=== PATIENT | male | born 1975 | race Hispanic/Latino ===

== ENCOUNTER 2019-03-25 16:43 | Emergency (ER) | payer BC ==
--- OUTSIDE RECORDS SUMMARY | 2019-03-25 16:44 | XMS REPORT | Summary of Care ---
:1975 Author Organization [facility] - [facility] Address [address] [place] [address] Care Team Providers Name Role Phone Edmundo Ballesterosa Palmira Primary Care Provider Reason for Visit Reason Comments Follow-up Hearing Problem Encounter Details Date Type Department Care Team Description 12/29/2018 Office Visit [facility] Ear, Nose Makishima, Otalgia of left ear (Primary Dx); and Throat-Lamar Lidia Otitis externa of left ear, unspecified chronicity, unspecified type [address] [facility] [id number] [place] [address] [phone] Allergies No Known Allergiesdocumented as of this encounter (statuses as of 12/29/2018) Medications Medication Sig Dispensed Refills Start Date End Date Status clotrimazole 1 % Instill 4 drops 15 mL 1 11/25/2018 Active solutionIndications: to both ear(s) Otitis externa, fungal, BID x 10 days. both ears, Perforation of left tympanic membrane documented as of this encounter (statuses as of 12/29/2018) Active Problems No known active problemsdocumented as of this encounter (statuses as of 2018) Social History Tobacco Use Types Packs/Day Years Used Date Never Smoker Smokeless Tobacco: Never Used Sex Assigned at Date Recorded Not on file Job Start Date Occupation Industry Not on file Not on file Not on file Travel History Travel Start Travel End No recent travel history available. documented as of this encounter Last Filed Vital Signs Vital Sign Reading Time Taken Comments Blood Pressure - - Pulse - - Temperature 36.7 C (98.1 F) 12/29/2018 4:01 PM CDT Respiratory Rate - - Oxygen Saturation - - Inhaled Oxygen Concentration - - Weight 135.2 kg (298 lb) 12/29/2018 4:01 PM CDT Height 175.3 cm (5' 9") 12/29/2018 4:01 PM CDT Body Mass Index 44.01 12/29/2018 4:01 PM CDT documented in this encounter Progress Notes Rafy Schmidt MD - 12/29/2018 4:00 PM CDT OTOLARYNGOLOGY CLINIC NOTE NAME: Jayjay Haywood DATE: 12/29/2018 CC: Bilateral otitis externa HISTORY OF PRESENT ILLNESS: Jayjay Haywood is a 43 year old male here for follow up of above complaint. Today patient reports hishearing is a lot better. He reports that he was told that right ear had the infection and his left ear had 'stuff' in it. He reports that [facility] they put gentian lloyd in his left ear. He is still following dry ear precautions and has stopped using q-tips to clean his ear. He reports that he believes that using the q-tips is what started his ear problems. Denies otorrhea, dizziness, fevers, chills PMH History reviewed. No pertinent past medical history. PSH History reviewed. No pertinent surgical history. Meds Current Outpatient Medications Medication Sig Dispense Refill clotrimazole 1 % solution Instill 4 drops to both ear(s) BID x 10 days. 15 mL 1 No current facility-administered medications for this visit. Social History Social History Socioeconomic History Marital status: Spouse name: Not on file Number of children: Not on file Years of education: Not on file Highest education level: Not on file Occupational History Not on file Social Needs Financial resource strain: Not on file Food insecurity: Worry: Not on file Inability: Not on file Transportation needs: Medical: Not on file Non-medical: Not on file Tobacco Use Smoking status: Never Smoker Smokeless tobacco: Never Used Substance and Sexual Activity Alcohol use: Not on file Drug use: Not on file Sexual activity: Not on file Lifestyle Physical activity: Days per week: Not on file Minutes per session: Not on file Stress: Not on file Relationships Social connections: Talks on phone: Not on file Gets together: Not on file Attends tenriism service: Not on file Active member of club or organization: Not on file Attends meetings of clubs or organizations: Not on file Relationship status: Not on file Intimate partner violence: Fear of current or ex partner: Not on file Emotionally abused: Not on file Physically abused: Not on file Forced sexual activity: Not on file Other Topics Concern Not on file Social History Narrative Not on file Allergies: No Known Allergies Review of systems: CONSTITUTIONAL: Negative EYES: Negative ENT: Negative CARDIOVASCULAR: Negative RESPIRATORY: Negative GASTROINTESTINAL: Negative GENITOURINARY: Negative MUSCULOSKELETAL: Negative SKIN: Negative NEUROLOGICAL: Negative PSYCHIATRIC: Negative ENDOCRINE: Negative HEMATOLOGIC/ LYMPHATIC: Negative ALLERGIC/ IMMUNOLOGIC: negative Physical Exam Vitals: Temp 36.7 C (98.1 F) (Tympanic) | Ht 5' 9" (1.753 m) | Wt 298 lb ( 135.2 kg) | BMI 44.01 kg/m Gen: patient appears stated age, awake, alert, oriented & in no apparent distress Eyes: EOMI Ears: External ears normal bilaterally Right ear canal is normal with no wax impaction or swelling Right tympanic membrane normal, intact TM, no fluid or perforation Left ear canal is normal with no wax impaction or swelling; gentian lloyd residue noted Left tympanic membrane normal, intact TM; no fluid/peforation Nose: No septal deviation, no polyps or pus; inferior turbinates not enlarged Oral cavity: No trismus, good dentition, no lesions Oropharynx: Tonsils 1+, no bleeding noted, mucosa regular Face/Neck: No facial lesions, no neck masses, trachea in midline with no deviation, no palpable thyroid nodules; salivary glands symmetrical without masses/tenderness Lymph: no palpable cervical adenopathy Pulmonary: No respiratory distress, breathing unlabored Imaging: None Labs: None new Studies: None new Procedure: None ASSESSMENT: Jayjay Haywood is a 43 year old male with a past medical history as detailed above, presenting for a f/u of the ear infection. His ear infection has resolved and he can RTC if the infection returns: ICD-10-CM ICD-9-CM 1. Otalgia of left ear H92.02 388.70 2. Otitis externa of left ear, unspecified chronicity, unspecified type H60.92 380.10 Plan: - Following dry ear precautions -Discusses harmful effects of using q-tips to clean the ears -Use diluted peroxide to clean the ears, if patient wishes to Attestation IEri , am scribing for, and in the presence of, Lidia Caban MD who performed and or ordered the services described here-in. Eri Dickens Scribe Lisa: [facility] Otolaryngology Clinics December 29, 2018, 4:08 PM IRafy MD, personally performed the services described in this documentation , as scribed by, Eri Dickens in my presence and it is both accurate and complete. Rafy Schmidt MD December 29, 2018, 9:28 PM documented in this encounter Plan of Treatment Health Maintenance Due Date Last Done Comments DTaP,Tdap,and Td Vaccines (1 - 12/13/1994 Tdap) INFLUENZA VACCINE (#1) 2019 PNEUMOCOCCAL 0-64 YEARS COMBINED Aged Out No longer eligible based on SERIES patient's age to complete this topic documented as of this encounter Results Not on filedocumented in this encounter Visit Diagnoses Diagnosis Otalgia of left ear - Primary Otalgia, unspecified Otitis externa of left ear, unspecified chronicity, unspecified type documented in this encounter Insurance Payer Benefit Plan Subscriber ID Effective Dates Phone Address Type / Group [facility] [id number] 2009-Prese [phone] [address] PPO/POS [place] - OUT OF 7 [id number] [place] [address] (Home) [place] [address] documented as of this encounter
--- OUTSIDE RECORDS SUMMARY | 2019-03-25 16:44 | XMS REPORT | Summary of Care ---
:1975 Author Organization [facility] - [facility] Address [address] [place] [address] Care Team Providers Name Role Phone Linette Ballesteros Palmira Primary Care Provider Reason for Visit Reason Comments Follow-up Right ear infection and left ear perforation Ear Problem Encounter Details Date Type Department Care Team Description 12/15/2018 Office Visit [facility] Ear, Nose Makishima, Conductive hearing loss of left ear with unrestricted hearing of right ear (Primary Dx); and Throat-[place]ri[place] Lidia Otitis externa, fungal, both ears; [address] [facility] Otorrhea, left [place] [address] [place] [phone] Allergies No Known Allergiesdocumented as of this encounter (statuses as of 12/19/2018) Medications Medication Sig Dispensed Refills Start Date End Date Status clotrimazole 1 % Instill 4 drops 15 mL 1 11/25/2018 Active solutionIndications: to both ear(s) Otitis externa, fungal, BID x 10 days. both ears, Perforation of left tympanic membrane documented as of this encounter (statuses as of 12/19/2018) Active Problems Not on filedocumented as of this encounter (statuses as of 12/19/2018) Social History Tobacco Use Types Packs/Day Years [...] - - Temperature 36.7 C (98.1 F) 12/15/2018 9:40 AM CDT Respiratory Rate - - Oxygen Saturation - - Inhaled Oxygen Concentration - - Weight 135.2 kg (298 lb) 12/15/2018 9:40 AM CDT Height 175.3 cm (5' 9") 12/15/2018 9:40 AM CDT Body Mass Index 44.01 12/15/2018 9:40 AM CDT documented in this encounter Progress Notes Lidia Caban - 12/15/2018 9:00 AM CDT Name: Jayjay Haywood MR No: [id number] Provider: Lidia Caban MD Date: 12/15/2018 Chief Complaint: fungal ear infections History of Present Illness: Jayjay Haywood is a 43 year old male seen today at the request of Reji Preston PA-C for evaluationof fungal ear infections. Reports h/o recurrent ear infections since April 2018 that were treatedwith 2-3 different antibiotics. He states he was prescribed an antifungal last visit and Pt reports hearing improved since finishing the 10 day antifungal course. Current medications reported: none Denies fever, or recent infections. Past Medical Hx: No past medical history on file. Past Surgical Hx: No past surgical history on file. Family History: No family history on file. Social History: Social History Occupational History Not on file Tobacco Use Smoking status: Never Smoker Smokeless tobacco: Never Used Substance and Sexual Activity Alcohol use: Not on file Drug use: Not on file Sexual activity: Not on file Medications: Current Outpatient Medications Medication Sig clotrimazole 1 % solution Instill 4 drops to both ear(s) BID x 10 days. Allergies to Meds: Patient has no known allergies. Review of systems: CONSTITUTIONAL: Negative EYES: Negative ENT: See HPI CARDIOVASCULAR: Negative RESPIRATORY: Negative GASTROINTESTINAL: Negative GENITOURINARY: Negative MUSCULOSKELETAL: Negative SKIN: Negative NEUROLOGICAL: Negative PSYCHIATRIC: Negative ENDOCRINE: Negative HEMATOLOGIC/ LYMPHATIC: Negative ALLERGIC/ IMMUNOLOGIC: negative Physical Exam: Temp 36.7 C (98.1 F) (Tympanic) | Ht 5' 9" (1.753 m) | Wt 298 lb (135.2 kg ) | BMI 44.01 kg/m CONSTITUTIONAL:No acute distress EYES:Extraocular movements intacts, no irritation EARS, NOSE, MOUTH, AND THROAT: Otoscopic Examination: RIGHT: Ear canal: Normal; Tympanic Membrane: Normal; Mobility: Normal Mobility. LEFT: Ear canal: Fungal and purulent debris noted; Tympanic Membrane: purulent ottorhea, fungal debris,; Mobility: Normal Mobility . External Ears: Normal pinna bilaterally External Nose: No deformity Nasal Exam: Normal septum and turbinates Oral Exam: No lesions Lips, Teeth, and Gums: Unremarkable, no lesions Larynx: Voice normal. No direct visualization, Tonsils Face: No lesions. TMJ joints not examinedCARDIOVASCULAR:Extremities were warm. RESPIRATORY:There was normal chest expansion SKIN:No lesions of the head and neck NEUROLOGICAL:Grossly intact PSYCHIATRIC: Normal Affect HEMATOLOGICAL/ LYMPHATIC:No lymphadenopathy or masses of the neck Data Reviewed: Medical: None Radiology: None Laboratory: None Audiology: None Procedure: Binocular Microscopy, left ear: Binocular microscopy was performed of the left ear for better visualization of the tympanic membranes. Debris was removed with a combination of Yamileth suctions , ring curette and alligator instruments as needed. After removal of the cerumen: Left: TM intact, Ciprodex drops and Gentian Kandace applied after removal Jayjay Haywood tolerated the procedure well without any complications. Assessment and Plan: Jayjay Haywood is a 43 year old male present as a new patient after seeing a PA- C for recurrent ear infections. Pt reports improvement today with Lotrimin drops. Pt is here for 2 week follow-up. ICD-10-CM ICD-9-CM 1. Conductive hearing loss of left ear with unrestricted hearing of right ear H90.12 389.05 2. Otitis externa, fungal, both ears B36.9 117.9 H62.43 380.15 3. Otorrhea, left H92.12 388.60 - Recommend using Lotrimin drops if symptoms return - Recommend using headphones rather than ear plugs for work Medications Given: (Patients allergies include: Patient has no known allergies.) None Follow Up: 2-3 weeks Scribe's Attestation I, Yaneli Mckeon , am scribing for, and in the presence of, Lidia Caban MD who performed the services described here-in. Yaneli Mckeon, December 15, 2018, 9:54 AM Physician's Attestation I, Dr. Lidia Caban MD, personally performed and ordered the services described in this documentation, as scribed by Yaneli Mckeon, in my presence , and it is both accurate and complete. documented in this encounter Plan of Treatment Date Type Specialty Care Team Description 12/29/2018 Office Visit Otolaryngology Lidia Caban [id number] [place] [address] [phone] Health Maintenance Due Date Last Done Comments DTaP,Tdap,and Td Vaccines (1 - 12/13/1994 Tdap) INFLUENZA VACCINE (#1) 2019 PNEUMOCOCCAL 0-64 YEARS COMBINED Aged Out No longer eligible based on SERIES patient's age to complete this topic documented as of this encounter Results Not on filedocumented in this encounter Visit Diagnoses Diagnosis Conductive hearing loss of left ear with unrestricted hearing of right ear - Primary Otitis externa, fungal, both ears Otorrhea, left documented in this encounter Insurance Payer Benefit Plan Subscriber ID Effective Dates Phone Address Type / Group [facility] [id number] 2009-Prese [phone] [address] PPO/POS [place] - OUT OF nt 7 [id number] [place] [address] (Home) [place] [address] documented as of this encounter
--- OUTSIDE RECORDS SUMMARY | 2019-03-25 16:44 | XMS REPORT | Summary of Care ---
:1975 Author Organization [facility] - [facility] Address [address] [place] [address] Care Team Providers Name Role Phone Edmundo Ballesterosa Palmira Primary Care Provider Encounter Details Date Type Department Care Team Description 12/29/2018 Letter (Out) [facility] Ear, Nose and MakLidia odonnell Throat-[address] [address] [place] [address] [place] [address] Allergies No Known Allergiesdocumented as of this encounter (statuses as of 12/29/2018) Medications Medication Sig Dispensed Refills Start Date End Date Status clotrimazole 1 % Instill 4 drops 15 mL 1 11/25/2018 Active solutionIndications: to both ear(s) Otitis externa, fungal, BID x 10 days. both ears, Perforation of left tympanic membrane documented as of this encounter (statuses as of 12/29/2018) Active Problems Not on filedocumented as of this encounter (statuses as of 12/29/2018) Social History Tobacco Use Types Packs/Day Years Used Date Never Smoker Smokeless Tobacco: Never Used Sex Assigned at Date Recorded Not on file Job Start Date Occupation Industry Not on file Not on file Not on file Travel History Travel Start Travel End No recent travel history available. documented as of this encounter Last Filed Vital Signs Not on filedocumented in this encounter Plan of Treatment Date Type Specialty Care Team Description 12/29/2018 Office Visit Otolaryngology Lidia Caban [id number] [place] [address] [phone] Health Maintenance Due Date Last Done Comments DTaP,Tdap,and Td Vaccines ( - 12/13/1994 Tdap) INFLUENZA VACCINE (#1) 2019 PNEUMOCOCCAL 0-64 YEARS COMBINED Aged Out No longer eligible based on SERIES patient's age to complete this topic documented as of this encounter Results Not on filedocumented in this encounter Insurance Payer Benefit Plan Subscriber ID Effective Dates Phone Address Type / Group [facility] [id number] 2009-[place] [phone] [address] PPO/POS [place] - OUT OF nt [id number] [place] [address] documented as of this encounter
--- OUTSIDE RECORDS SUMMARY | 2019-03-25 16:44 | XMS REPORT ---
:1975 [facility] Address [address] [place] [address] Dr. Martinez [address] [place] [address] Care Team Providers Name Role Phone Unavailable Unavailable Unavailable Problems This patient has no known problems. Allergies, Adverse Reactions, Alerts This patient has no known allergies or adverse reactions. Medications This patient has no known medications.
--- NOTE | 2019-03-25 18:14 | RAD REPORT ---
EXAM DESCRIPTION: CT - Head Brain Wo Cont - 03/25/2019 6:03 pm CLINICAL HISTORY: Facial droop COMPARISON: None. TECHNIQUE: Computed axial tomography of the head was obtained. IV contrast was not requested. All CT scans are performed using dose optimization technique as appropriate and may include automated exposure control or mA/KV adjustment according to patient size. FINDINGS: An intracranial bleed is not seen . The ventricles are normal in caliber. No extra-axial fluid collection is noted. Thickening of the left frontal bone appears chronic Fluid within the sinuses/ mastoids is not seen. IMPRESSION: No acute intracranial abnormality is seen. If patient's symptoms persist MRI of the bra in would be recommended.
[2019-03-25] MEDS ORDERED: ONDANSETRON 4 MG (ODT) TAB ONE (18:40)
[2019-03-25] MEDS ORDERED: MORPHINE 4 MG/ML SYR ONE (18:40)
--- NOTE | 2019-03-25 19:07 | ER ---
Nurse's Notes [facility] Name: Jayjay Haywood Age: 43 yrs Sex: Male : 1975 Arrival Date: 03/25/2019 Time: 16:44 Bed 17 Private MD: Linette Ballesteros K Diagnosis: Manley's palsy Presentation: 03/25 16:47 Presenting complaint: Patient states: L sided facial droop and numbness that began at ss 0630 this AM. VAN scoring is negative. Transition of care: patient was not received from another setting of care. Onset of symptoms was March 25, 2019 at 06:30. Risk Assessment: Do you want to hurt yourself or someone else? Patient reports no desire to harm self or others. Initial Sepsis Screen: Does the patient have a suspected source of infection? No. Patient's initial sepsis screen is negative. Care prior to arrival: None. 16:47 Method Of Arrival: Ambulatory ss 17:15 Initial Sepsis Screen: Does the patient meet any 2 criteria? HR > 90 bpm. No. Patient's aj1 initial sepsis screen is negative. 17:15 Acuity: IMTIAZ 3 aj1 Triage Assessment: 17:12 General: Appears in no apparent distress. comfortable, Behavior is calm, cooperative, aj1 appropriate for age. Pain: Complains of pain in scalp Pain currently is 6 out of 10 on a pain scale. Neuro: Level of Consciousness is awake, alert, obeys commands, Oriented to person, place, time, situation. Neuro: Stallion Keeper are equal bilaterally Gait is steady, Speech is normal, Facial droop on left, Reports numbness left side of face. Cardiovascular: Patient's skin is warm and dry. Respiratory: Airway is patent Respiratory effort is even, unlabored, Respiratory pattern is regular, symmetrical. Historical: - Allergies: 17:12 No Known Allergies; aj1 - Home Meds: 17:12 Lisinopril Oral [Active]; Hydrochlorothiazide Oral [Active]; Claritin Oral [Active]; aj1 - PMHx: 17:12 Hypertension; pre-diabetes; aj1 - Immunization history:: Flu vaccine is not up to date. - Social history:: Smoking status: Patient/guardian denies using tobacco, Patient/guardian denies using alcohol, street drugs, The patient lives with family. - Ebola Screening: : Patient denies travel to an Ebola-affected area in the 21 days before illness onset. - Family history:: not pertinent. Screenin:03 VAN Screening: Arm Drift: Patient shows no arm weakness. Visual Disturbance: No visual ss disturbance noted. Aphasia: No aphasia noted. Neglect: No neglect noted. 18:15 Abuse screen: Denies threats or abuse. Denies injuries from another. Nutritional hb screening: No deficits noted. Tuberculosis screening: No symptoms or risk factors identified. Fall Risk None identified. Assessment: 18:02 Reassessment: In CT at this time. ss 18:15 General: Appears in no apparent distress. Behavior is calm, cooperative. Pain: Denies hb pain. Neuro: Level of Consciousness is awake, alert, obeys commands, Oriented to person, place, time, situation, Facial droop on left. Cardiovascular: Capillary refill < 3 seconds Patient's skin is warm and dry. Respiratory: Airway is patent Respiratory effort is even, unlabored, Respiratory pattern is regular, symmetrical. GI: No signs and/or symptoms were reported involving the gastrointestinal system. : No signs and/or symptoms were reported regarding the genitourinary system. EENT: No signs and/or symptoms were reported regarding the EENT system. Derm: Reports left sided facial numbness. Musculoskeletal: No signs and/or symptoms reported regarding the musculoskeletal system. 18:43 Reassessment: Pt c/o stabbing pain behind left liliana. Dr. Fierro notified, morphine and hb zofran administered as ordered. 19:15 Reassessment: Patient appears in no apparent distress at this time. Patient and/or wh family updated on plan of care and expected duration. Pain level reassessed. Patient is alert, oriented x 3, equal unlabored respirations, skin warm/dry/pink. Vital Signs: 17:12 BP 158 / 100; Pulse 101; Resp 18; Temp 97.8; Pulse Ox 95% on R/A; Weight 133.81 kg (R); aj1 19:00 BP 138 / 54; Pulse 85; Resp 18; Pulse Ox 98% on R/A; NIH Stroke Scale Scores: 17:03 NIHSS Score: 3 ss ED Course: 16:44 Patient arrived in ED. as 16:44 Linette Ballesteros MD is Private Physician. as 17:12 Arm band placed on Patient placed in waiting room, Patient notified of wait time. aj1 17:15 Triage completed. aj1 18:[address] via wheelchair. vm2 18:03 CT Head Brain wo Cont In Process Unspecified. EDMS 18:11 Blane Fierro MD is Attending Physician. ma2 18:15 Patient has correct armband on for positive identification. Bed in low position. Call light in reach. Side rails up X 1. 18:29 Dee Ruiz, KAMRON is Primary Nurse. 19:30 No provider procedures requiring assistance completed. Patient did not have IV access wh during this emergency room visit. Administered Medications: 18:44 Drug: morphine 4 mg Route: IM; Site: right deltoid; hb 19:30 Follow up: Response: No adverse reaction; Pain is decreased; RASS: Alert and Calm (0) 18:44 Drug: Zofran 4 mg Route: PO; hb 19:30 Follow up: Response: No adverse reaction; Nausea is decreased Outcome: 19:07 Discharge ordered by . [facility] 19:30 Discharged to home ambulatory, with family. 19:30 Condition: stable 19:30 Discharge instructions given to patient, family, Instructed on discharge instructions, follow up and referral plans. medication usage, POC [place] Palsy Demonstrated understanding of instructions, follow-up care, medications, POC Prescriptions given X 3. 19:42 Patient left the ED. NIH Stroke Scale - NIH Stroke Score Date: 03/25/2019 Time: 17:03 Total Score = 3 1a. Level of Consciousness (LOC) - 0(Alert) 1b. Level of Consciousness (LOC) (Year \T\ Age) - 0(Both) 1c. LOC Commands (Open \T\ Closes Eyes/Advertising Supervisor) - 0(Both) 2. Best Gaze (Lateral Gaze Paresis) - 0(Normal) 3. Visual Field Loss - 0(No visual loss) 4. Facial Palsy - 2(Partial paralysis) 5a. Left Arm: Motor (10-second hold) - 0(No drift) 5b. Right Arm: Motor (10-second hold) - 0(No drift) 6a. Left Leg: Motor (5-second hold - always test supine) - 0(No drift) 6b. Right Leg: Motor (5-second hold - always test supine) - 0(No drift) 7. Limb Ataxia (finger/nose \T\ heel/leahy - test with eyes open) - 0(Absent) 8. Sensory Loss (pinprick arms/legs/face) - 1(Mild to moderate loss) 9. Best Language: Aphasia (description/naming/reading) - 0(No aphasia) 10. Dysarthria (speech clarity - read or repeat words) - 0(Normal) 11. Extinction and Inattention (visual/tactile/auditory/spatial/personal) - 0(No abnormality) Initials: Signatures: Dispatcher [employer] Kim Nava RN RN aj1 Serenity Ramires Shelby, RN RN Dee Ruiz RN RN Nuris Krause Winsy wh Alzahri, Mohammad, MD MD ma2
--- NOTE | 2019-03-25 19:08 | EDPHYS ---
Physician Documentation [facility] Name: Jayjay Haywood Age: 43 yrs Sex: Male : 1975 Arrival Date: 03/25/2019 Time: 16:44 Bed 17 Private MD: Linette Ballesteros K ED Physician Blane Fierro HPI: 03/25 19:04 This 43 yrs old Male presents to ER via Ambulatory with complaints of Numbness ma2 Of Face. 19:04 The patient's problem is reported as a facial droop, on left. Onset: The ma2 symptoms/episode began/occurred suddenly, 1 day(s) ago. Associated signs and symptoms: Pertinent negatives: ataxia, combativeness, diarrhea, dizziness, headache. Severity of symptoms: At their worst the symptoms were moderate in the emergency department the symptoms are unchanged. The patient has experienced a previous episode. Historical: - Allergies: 17:12 No Known Allergies; aj1 - Home Meds: 17:12 Lisinopril Oral [Active]; Hydrochlorothiazide Oral [Active]; Claritin Oral [Active]; aj1 - PMHx: 17:12 Hypertension; pre-diabetes; aj1 - Immunization history:: Flu vaccine is not up to date. - Social history:: Smoking status: Patient/guardian denies using tobacco, Patient/guardian denies using alcohol, street drugs, The patient lives with family. - Ebola Screening: : Patient denies travel to an Ebola-affected area in the 21 days before illness onset. - Family history:: not pertinent. ROS: 19:04 Constitutional: Negative for fever, chills, and weight loss, Neck: Negative for injury, ma2 pain, and swelling, Cardiovascular: Negative for chest pain, palpitations, and edema, Respiratory: Negative for shortness of breath, cough, wheezing, and pleuritic chest pain, Abdomen/GI: Negative for abdominal pain, nausea, diarrhea, and constipation, MS/Extremity: Negative for injury and deformity, Skin: Negative for injury, rash, and discoloration, Neuro: left facial droop including forehead, Negative for headache, weakness, numbness, tingling, and seizure, Psych: Negative for depression, anxiety, suicide ideation, homicidal ideation, and hallucinations. 19:04 All other systems are negative. ma2 Exam: 19:04 Constitutional: This is a well developed, well nourished patient who is awake, alert, ma2 and in no acute distress. Head/Face: Normocephalic, atraumatic. Chest/axilla: Normal chest wall appearance and motion. Nontender with no deformity. No lesions are appreciated. Cardiovascular: Regular rate and rhythm with a normal S1 and S2. No gallops, murmurs, or rubs. Normal PMI, no JVD. No pulse deficits. Respiratory: Lungs have equal breath sounds bilaterally, clear to auscultation and percussion. No rales, rhonchi or wheezes noted. No increased work of breathing, no retractions or nasal flaring. Abdomen/GI: Soft, non-tender, with normal bowel sounds. No distension or tympany. No guarding or rebound. No evidence of tenderness throughout. MS/ Extremity: Pulses equal, no cyanosis. Neurovascular intact. Full, normal range of motion. Neuro: Awake and alert, GCS 15, oriented to person, place, time, and situation. Cranial nerves II-XII grossly intact. Motor strength 5/5 in all extremities. Sensory grossly intact. Cerebellar exam normal. Normal gait. 19:04 Neuro: Awake and alert, GCS 15, oriented to person, place, time, and situation. left ma2 facial droop including forehead, other Cranial nerves grossly intact. Motor strength 5/5 in all extremities. Sensory grossly intact. Cerebellar exam normal. Normal gait. 19:08 Radiologist reports: normal ma2 Vital Signs: 17:12 BP 158 / 100; Pulse 101; Resp 18; Temp 97.8; Pulse Ox 95% on R/A; Weight 133.81 kg (R); aj1 19:00 BP 138 / 54; Pulse 85; Resp 18; Pulse Ox 98% on R/A; NIH Stroke Scale Scores: 17:03 NIHSS Score: 3 ss MDM: 18:11 Patient medically screened. ma2 19:04 Differential diagnosis: paralysis, metabolic disorder, drug effects, bells. Data ma2 reviewed: vital signs, nurses notes. Counseling: I had a detailed discussion with the patient and/or guardian regarding: the historical points, exam findings, and any diagnostic results supporting the discharge/admit diagnosis, the presence of at least one elevated blood pressure reading (>120/80) during this emergency department visit, the need for outpatient follow up. 03/25 17:02 Order name: CT Head Brain wo Cont; Complete Time: 18:37 ss Administered Medications: 18:44 Drug: morphine 4 mg Route: IM; Site: right deltoid; hb 19:30 Follow up: Response: No adverse reaction; Pain is decreased; RASS: Alert and Calm (0) 18:44 Drug: Zofran 4 mg Route: PO; hb 19:30 Follow up: Response: No adverse reaction; Nausea is decreased Disposition: 03/25/19 19:07 Discharged to Home. Impression: Amnley's palsy. - Condition is Stable. - Discharge Instructions: Manley Palsy, Adult. - Prescriptions for Acyclovir 400 mg Oral Tablet - take 1 tablet by ORAL route every 8 hours; 30 tablet. Medrol (Karan) 4 mg Oral Tablets, Dose Pack - take 1 tablet by ORAL route as directed - follow package instructions; 1 packet. Neurontin 300 mg Oral Capsule - take 1 capsule by ORAL route At bedtime; 20 capsule. - Medication Reconciliation Form, Thank You Letter, Antibiotic Education, Prescription Opioid Use form. - Follow up: Private Physician; When: Tomorrow; Reason: If symptoms return, Continuance of care. NIH Stroke Scale - NIH Stroke Score Date: 03/25/2019 Time: 17:03 Total Score = 3 1a. Level of Consciousness (LOC) - 0(Alert) 1b. Level of Consciousness (LOC) (Year \T\ Age) - 0(Both) 1c. LOC Commands (Open \T\ Closes Eyes/Frame Coverer) - 0(Both) 2. Best Gaze (Lateral Gaze Paresis) - 0(Normal) 3. Visual Field Loss - 0(No visual loss) 4. Facial Palsy - 2(Partial paralysis) 5a. Left Arm: Motor (10-second hold) - 0(No drift) 5b. Right Arm: Motor (10-second hold) - 0(No drift) 6a. Left Leg: Motor (5-second hold - always test supine) - 0(No drift) 6b. Right Leg: Motor (5-second hold - always test supine) - 0(No drift) 7. Limb Ataxia (finger/nose \T\ heel/leahy - test with eyes open) - 0(Absent) 8. Sensory Loss (pinprick arms/legs/face) - 1(Mild to moderate loss) 9. Best Language: Aphasia (description/naming/reading) - 0(No aphasia) 10. Dysarthria (speech clarity - read or repeat words) - 0(Normal) 11. Extinction and Inattention (visual/tactile/auditory/spatial/personal) - 0(No abnormality) Initials: ss Signatures: Dispatcher [employer] Kim Nava RN RN aj1 Dee Ruiz RN RN Danelle Smith Blane Fierro MD MD ma2 Corrections: (The following items were deleted from the chart) 19:42 19:07 03/25/2019 19:07 Discharged to Home. Impression: Manley's palsy. Condition wh is Stable. Forms are Medication Reconciliation Form, Thank You Letter, Antibiotic Education, Prescription Opioid Use. Follow up: Private Physician; When: Tomorrow; Reason: If symptoms return, Continuance of care. ma2
[2019-03-25 20:47] VITALS: BP 158/100; TEMP 97.8; O2SAT 95
== END 2019-03-25 19:42 | disposition home or self-care (01) ==
LOC: ER 16:43
DX: G51.0 Bell's palsy (principal); I10 Essential (primary) hypertension; R73.03 Prediabetes
CPT/HCPCS: 70450; 96372; 99284